=== PATIENT | male | born 1975 | race African-American/Black ===

== ENCOUNTER 2018-07-31 12:33 | Observation (INO) ==
[2018-07-31 13:53] LABS: Apearance,Urine CLEAR (Clear); Bilirubin,Urine Negative (Negative); Blood, Urine Moderate mg/dL (Negative); Glucose,Urine (UA) Negative (Negative); Ketones,Urine Negative (Negative); Nitrite,Urine Negative (Negative); Protein,Urine Negative; RBC,Urine 2 /HPF (0-4); Urine Color Yellow (Yellow); Urine Specific Gravity 1.015 (1.001-1.035); WBC,Urine <1 /HPF (0-6)
[2018-07-31 13:57] LABS: Barbiturates Screen,Urine Negative (Negative); Benzodiazepines Screen,Urine Negative (Negative); Cannabinoid Screen,Urine Negative (Negative); Opiate Screen,Urine Negative (Negative); Phencyclidine Screen,Urine Negative (Negative)
[2018-07-31 14:04] LABS: Basophils # 0.1 10*3/uL (0.0-0.2); Basophils % 0.8 % (0.0-0.8); Eosinophils # 0.3 10*3/uL (0.0-0.87); Eosinophils % 2.9 % (0.00-10.9); Hematocrit 45.3 VOL% (42.0-52.0); Hemoglobin 15.2 GM/DL (14.0-18.0); Immature Granulocytes % 0.5 %; Immature Granulocytes Absolute 0.05 #; Lymphocytes # 3.4 10*3/uL (1.4-4.0); Lymphocytes % 33.5 % (21.2-54.2); Mean Corpuscular HGB Conc 33.6 GM/DL (32-36); Mean Corpuscular Hemoglobin 28 PG (27-34); Mean Platelet Volume 10.5 FL (9.6-12.0); Monocytes % 9.8 % (1.7-12.7); Neutrophils # 5.3 10*3/uL (1.4-7.4); Neutrophils % 52.5 % (38.7-73.9); Platelet Count 280 T/CUMM (130-400); Red Blood Count 5.46 MC/CUMM (3.8-5.5); Red Cell Distribution Width 14.5 % (9.3-17.3); White Blood Count 10.1 T/CUMM (4-12)
[2018-07-31 14:11] LABS: PT Patient Result 10.2 SECS; Partial Thromboplastin Time 30.1 SECS (0-40)
[2018-07-31 14:19] LABS: Alanine Aminotransferase 61 U/L (16-61); Albumin 3.8 G/DL (3.4-5.0); Alkaline Phosphatase 74 U/L (45-117); Amylase 77 U/L (25-115); Aspartate Amino Transferase 32 U/L (0-37); Blood Urea Nitrogen 21 MG/DL (7-18); Calcium 9.1 MG/DL (8.5-10.1); Glucose 91 MG/DL (74-106); Osmolality,Calculated 277.7 MOS/KG (273-304); Potassium 3.3 MMOL/L (3.5-5.1); Sodium 138 MMOL/L (136-145); Troponin I < 0.015 NG/ML (0.00-0.045)
[2018-07-31] MEDS ORDERED: ONDANSETRON 4 MG/2 ML VIAL IV PRN (16:11)
[2018-07-31] MEDS ORDERED: MORPHINE 4 MG/1 ML VIAL IV PRN (16:11)
[2018-07-31] MEDS ORDERED: LACTULOSE 20 GM/30 ML UDCUP PO PRN (16:11)
[2018-07-31] MEDS ORDERED: NICOTINE 21 MG/24 HR PATCH TRANSDERM PRN (16:11)
[2018-07-31] MEDS ORDERED: DOCUSATE SODIUM 100 MG CAPSULE PO PRN (16:11)
[2018-07-31] MEDS ORDERED: ACETAMINOPHEN 325 MG TABLET PO PRN (16:11)
[2018-07-31] MEDS ORDERED: ENOXAPARIN 100 MG/ML SYRINGE SUBCUT SCH (17:30)
[2018-07-31] MEDS: amLODIPine 5 MG TABLET PO SCH (17:31)
[2018-07-31] MEDS ORDERED: ATORVASTATIN 20 MG TABLET PO SCH (21:00)
[2018-07-31] MEDS: POTASSIUM CHLORIDE 20 MEQ TABLET PO PRN ×2 (21:18→22:57)
[2018-08-01] MEDS: POTASSIUM CHLORIDE 20 MEQ TABLET PO PRN (01:46)
[2018-08-01 05:14] LABS: Basophils # 0.1 10*3/uL (0.0-0.2); Basophils % 0.8 % (0.0-0.8); Eosinophils # 0.2 10*3/uL (0.0-0.87); Eosinophils % 3.2 % (0.00-10.9); Hematocrit 42.9 VOL% (42.0-52.0); Hemoglobin 14.4 GM/DL (14.0-18.0); Immature Granulocytes % 0.5 %; Immature Granulocytes Absolute 0.04 #; Mean Corpuscular HGB Conc 33.6 GM/DL (32-36); Mean Corpuscular Hemoglobin 28 PG (27-34); Mean Corpuscular Volume 83.3 FL (87-102); Mean Platelet Volume 10.5 FL (9.6-12.0); Monocytes # 0.7 10*3/uL (0.11-0.8); Monocytes % 8.6 % (1.7-12.7); Neutrophils # 3.6 10*3/uL (1.4-7.4); Neutrophils % 46.9 % (38.7-73.9); Platelet Count 267 T/CUMM (130-400); Red Blood Count 5.15 MC/CUMM (3.8-5.5); Red Cell Distribution Width 14.3 % (9.3-17.3); White Blood Count 7.6 T/CUMM (4-12)
[2018-08-01 05:35] LABS: Calcium 8.9 MG/DL (8.5-10.1); Osmolality,Calculated 277.8 MOS/KG (273-304); Potassium 3.6 MMOL/L (3.5-5.1); Risk Ratio 7.28; VLDL CHOLESTEROL 187.8 MG/DL
[2018-08-01] MEDS ORDERED: PANTOPRAZOLE 40 MG TABLET PO SCH (09:00)
[2018-08-01] MEDS: amLODIPine 5 MG TABLET PO SCH (09:25)
[2018-08-01] MEDS ORDERED: NITROGLYCERIN SL 0.4 MG TABLET SL PRN (10:36)
[2018-08-01] MEDS ORDERED: ASPIRIN EC 325 MG TABLET PO SCH (11:00)
[2018-08-01 11:34] VITALS: BP 148/99
[2018-08-01] MEDS ORDERED: OMEGA 3 ACID ETHYL ESTERS 1 GM CAPSULE PO SCH (21:00)
== END 2018-08-01 14:31 | disposition home or self-care (01) ==
LOC: N.ED 12:33 → N.EDINP 12:33 → SUATTDRO 16:11 → N.TELEN 17:00
PROVIDERS: ADMIT Internal Medicine; ATTEND Hospitalist